=== PATIENT | male | born 1985 | race Two or more races ===

== ENCOUNTER 2022-05-21 12:24 | Emergency (ER) | payer OTHER, SELFPAY ==
[2022-05-21 12:25] VITALS: BP 159/106; PULSE 93; RESP 15; TEMP 35.2; O2SAT 97; BMI 24.4
--- NOTE | 2022-05-21 12:38 | EDS_ITS ---
HPI HPI - GI History of Present Illness Chief Complaint: Abd Pain Narrative Narrative: 37-year-old male presenting with right-sided abdominal pain. He states that they had it for about 4 hours. It is now gone. He expresses that he had some nausea with it but does not have this anymore. He has not had a fever, chills. Denies diarrhea or constipation. The patient also states has had this before. It does not appear to be associated with food. He states it hurts whether he eats or does not eat. The symptoms come and go. He denies any medical problems. PFSH PFSH Allergy/AdvReac Type Severity Reaction Status Date / Time No Known Allergies Allergy Verified 05/21/22 12:25 Social History Smoking Status: Never smoker ROS ROS ED Constitutional Constitutional ED: Denies chills or fever(s) ENT ENT ED: Denies rhinorrhea or sore throat Cardiovascular Cardiovascular: Denies palpitations or racing heartbeat Respiratory/Chest Respiratory/Chest: Denies cough or dyspnea Gastrointestinal Gastrointestinal: Reports abdominal pain and nausea; Denies constipation, diarrhea or vomiting Genitourinary Genitourinary ED: Denies dysuria or hematuria Musculoskeletal Musculoskeletal: Denies arthralgias or back pain Integumentary Denies abscess Neurologic Neurologic: Denies headache(s) or paresthesias Psychiatric Psychiatric: Denies anxiety or depression EXAM Physical Exam Const Vital Signs: 05/21/22 12:25 Temperature 95.4 F L Temperature Source Temporal Pulse Rate 93 Respiratory Rate 15 Blood Pressure 159/106 H Blood Pressure Mean 123 Pulse Ox 97 Oxygen Delivery Method Room Air Positive well nourished General Appearance ED: NAD; Negative for pallor HEENT Reports moist mucous membranes atraumatic Eyes PERRL and EOMs intact bilaterally Resp normal respiratory effort and clear to auscultation bilaterally Cardio regular rate and regular rhythm GI non-tender, non-distended and no masses Neuro CN's II-XII intact bilaterally Sensorium / Orientation: alert, oriented to person, oriented to place and oriented to time Motor Exam: strength 5/5 throughout Psych mental status grossly normal and thought process normal Skin General Skin Exam: Negative for jaundice or pallor Rashes: no rashes MDM MDM MDM Narrative Medical decision making narrative: 37-year-old male presenting with intermittent right-sided abdominal pain. Its not related to food. He gets the pain intermittently whether he eats or not. He is not vomiting. He does not have diarrhea or constipation. He is not had a fever or chills. He is currently pain-free. He states that 85% of the time he is pain-free. I obtained lab work and his CBC is within normal limits. CMP is normal with exception of a slightly elevated bilirubin at 1.70. His other LFTs are normal. He is currently pain-free. With elevated bilirubin I do not know that this is specific to any condition as he is otherwise well-appearing and does not express that he is in any pain at all. He has normal vital signs. His other LFTs are all normal. His lipase is normal. He has no signs of jaundice or scleral icterus. I discussed this with him at length and through shared d ecision making we determined we would not do new imaging today. He is concerned that he might have to pay for this [id number] because of his insurance coverage. I did deputy chief counsel him if something was going on that was concerning it would present itself. Currently his blood work is otherwise normal. He states he will come back if he has any worsening of pain or worsening of symptoms. Impression: 1. Abdominal pain 2. Elevated bilirubin Lab Data Attestation: I reviewed the patient's lab results. Labs: Laboratory Results - last 24 hr 05/21/22 05/21/22 12:47 12:47 WBC 7.7 RBC 5.38 Hgb 15.9 Hct 46.4 MCV 86.2 MCH 29.6 MCHC 34.3 RDW Std Deviation 39.8 RDW Coeff of Michael 12.7 Plt Count 281 MPV 11.8 Immature Gran % (Auto) 0.400 Neut % (Auto) 73.3 H Lymph % (Auto) 20.0 Mccracken % (Auto) 5.3 Eos % (Auto) 0.6 Baso % (Auto) 0.4 Absolute Neuts (auto) 5.7 Absolute Lymphs (auto) 1.54 Nucleated RBC % 0 Sodium 138 Potassium 3.7 Chloride 105 Carbon Dioxide 27.0 Anion Gap 6 BUN 16 Creatinine 1.04 Estim Creat Clear Calc 101.39 Est GFR (MDRD) Af Amer 104 Est GFR (MDRD) Non-Af 86 BUN/Creatinine Ratio 15.4 Glucose 105 Calcium 9.6 Total Bilirubin 1.70 H AST 10 L ALT 13 L Alkaline Phosphatase 82 Total Protein 8.2 Albumin 4.7 Globulin 3.5 Albumin/Globulin Ratio 1.3 Lipase 107 Discharge Plan Triage Chief Complaint: Abd Pain ED Provider: Jose Smiley Dx/Rx/DC Orders Primary Care Provider: Care Physician,No Primary Referrals: NOT,DEFINED [Non-Staff] -
[2022-05-21 12:54] LABS: Absolute Lymphocyte Count 1.54 X10^3/uL (0.83-4.51); Absolute Neutrophil Count 5.7 X10^3/uL (2.0-7.7); Basophil# 0.03 X10^3/uL; Basophil% 0.4 % (0-1); Eosinophil# 0.05 X10^3/uL; Eosinophils% 0.6 % (0-5); Hematocrit 46.4 % (40-54); Hemoglobin 15.9 g/dL (13.0-16.5); Lymphocyte # 1.54 X10^3/ul (0.83-4.51); Mean Corp Hgb Conc 34.3 g/dL (32-36); Mean Corpuscular Hgb 29.6 pg (27.0-32.0); Mean Corpuscular Volume 86.2 fL (80-94); Mean Platelet Vol. 11.8 fl (6.2-12.0); Monocyte# 0.41 X10^3/uL; Monocyte% 5.3 % (0-10); NRBC Flagged by Analyzer 0 % (0-5); Neutrophil # 5.65 X10^3/uL (2.7-7.7); Neutrophil % 73.3 % (47-70); Platelet Count 281 K/mm3 (150-450); RBC Distribution Width CV 12.7 % (11.6-14.6); RBC Distribution Width SD 39.8 fl (35.1-43.9); Red Blood Count 5.38 M/mm3 (4.6-6.2); White Blood Count 7.7 K/mm3 (4.4-11.0)
[2022-05-21 13:11] LABS: ALB/GLOB Ratio 1.3 RATIO (0.9-2.4); AST(SGOT) 10 U/L (15-37); Alanine Aminotransfer ALT/SGPT 13 U/L (16-61); Albumin, Serum 4.7 g/dL (3.2-5.0); Alkaline Phosphatase 82 U/L (45-117); Anion Gap 6 (5-15); BUN 16 mg/dL (7-18); BUN/Creat Ratio 15.4 RATIO (10-20); Calcium,Total 9.6 mg/dL (8.5-10.1); Chloride 105 mmol/L (98-107); Creatinine, Serum 1.04 mg/dL (0.70-1.30); EST Glomerular Filtration Rate 86 mL/min (>60); Est Glom Filt Rate - Afr Amer 104 mL/min (>60); Estimated Creatinine Clearance 101.39 ml/min; Globulin 3.5 g/dL (2.2-4.2); Glucose 105 mg/dL (74-106); Lipase 107 U/L (73-393); Potassium 3.7 mmol/L (3.5-5.1); Protein, Total 8.2 g/dL (6.4-8.2); Sodium Level 138 mmol/L (136-145)
== END 2022-05-21 13:59 | disposition home or self-care (01) ==
PROVIDERS: Emergency Provider Student in an Organized Health Care Education/Training Program; Visit Provider Student in an Organized Health Care Education/Training Program
DX: R10.9 Unspecified abdominal pain (principal); E80.7 Disorder of bilirubin metabolism, unspecified
CPT/HCPCS: 80053; 83690; 85025; 99283; A4216